=== PATIENT | female | born 1970 | race Caucasian/White ===

== ENCOUNTER 2018-01-20 14:05 | Emergency (ER) | payer SELFPAY ==
[~2018-01-20] VITALS: Ht 167.6 cm; Wt 59.1 kg
[2018-01-20 14:16] VITALS: BP 123/79; PULSE 117; TEMP 98.4
== END 2018-01-20 14:55 | disposition home or self-care (01) ==
LOC: COL.ER 14:05
DX: S60.212A Contusion of left wrist, initial encounter (principal); Z85.3 Personal history of malignant neoplasm of breast; W08.XXXA Fall from other furniture, initial encounter

== ENCOUNTER 2023-04-15 08:45 | Emergency (ER) | payer OTHER ==
[~2023-04-15] VITALS: Ht 167.6 cm; Wt 56.8 kg
[2023-04-15 08:49] VITALS: TEMP 98
[2023-04-15 10:18] VITALS: BP 110/74; PULSE 101
== END 2023-04-15 10:18 | disposition home or self-care (01) ==
LOC: COL.ER 08:45
DX: S80.02XA Contusion of left knee, initial encounter (principal); S60.212A Contusion of left wrist, initial encounter; S60.052A Contusion of left little finger without damage to nail, initial encounter; Z98.890 Other specified postprocedural states; Z96.698 Presence of other orthopedic joint implants; Z98.1 Arthrodesis status; W01.10XA Fall on same level from slipping, tripping and stumbling with subsequent striking against unspecified object, initial encounter